=== PATIENT | female | born 1995 | race Caucasian/White ===

== ENCOUNTER 2017-03-30 20:53 | Emergency (ER) | payer SELFPAY ==
[~2017-03-30] VITALS: Ht 157.5 cm; Wt 54.5 kg
[2017-03-30] MEDS ORDERED: ASPI-556 PO (21:08)
[2017-03-30] MEDS ORDERED: ATOR40TA28 PO (21:08)
[2017-03-30 21:17] VITALS: BP 119/71
[2017-03-30] MEDS ORDERED: PHEN60TA15 PO (21:23)
== END 2017-03-30 21:50 | disposition home or self-care (01) ==
LOC: EMS 20:56
DX: Z76.0 Encounter for issue of repeat prescription (principal); Z79.899 Other long term (current) drug therapy
CPT/HCPCS: 99283